=== PATIENT | female | born 1955 | race Caucasian/White ===

== ENCOUNTER 2020-11-19 15:30 | Outpatient (REF) | payer OTHER, SELFPAY ==
[2020-11-19 17:21] LABS: Syphilis Screen Reactive (Nonreactive)
[2020-11-19 17:31] LABS: Folate 15.4 ng/mL (> or = 4.0); Vitamin B12 511 pg/mL (200-900)
[2020-11-20 10:22] LABS: Lyme Abs Screen <0.90 index
[2020-11-26 11:37] LABS: RPR Quantitative Reactive 1:1 (Nonreactive); T.Pallidum Particle Agg Test Reactive (Nonreactive)
== END 2020-11-19 15:31 | disposition home or self-care (01) ==
LOC: HO.LAB 15:30
PROVIDERS: Visit Provider Psychiatry & Neurology Neurology
DX: Z01.84 Encounter for antibody response examination (principal); G93.40 Encephalopathy, unspecified
CPT/HCPCS: 36415; 82607; 82746; 86592; 86617; 86618; 86780

== ENCOUNTER 2020-11-23 15:33 | Outpatient (REF) | payer OTHER, SELFPAY ==
--- NOTE | ~2020-11-23 | MR_ITS ---
EXAMINATION: MR BRAIN WITHOUT CONTRAST CLINICAL INFORMATION: 65-year-old with memory loss. Encephalopathy. COMPARISON: None TECHNIQUE: Multiplanar multisequence MR imaging of the brain was done without intravenous contrast material. FINDINGS: Brain Volume: Normal for age with no definite disproportionate regional brain parenchymal volume loss. Structural: No malformations. Brain and Meninges: Numerous patchy and punctate foci of FLAIR/T2 signal hyperintensity are noted within the subcortical and deeper periventricular white matter of both cerebral hemispheres without restricted diffusion, which are nonspecific findings. Bilateral confluent periventricular T2 hyperintensity is seen consistent with leukoareosis. The findings are most consistent with chronic ischemic microangiopathy. DWI imaging demonstrates no restricted diffusion. Specifically, there is no evidence for recent or acute infarct. Gradient-echo imaging demonstrates no evidence for hemorrhage, hemosiderin staining or abnormal mineral deposition. No extra-axial fluid collections, space-occupying process or mass effect are identified. Posterior fossa structures appear intact. There is a small T2 hyperintensity in the right beni also likely reflecting minimal chronic microvascular ischemic change. There is subtle FLAIR signal hyperintensity bordering the anterior third ventricle bilaterally which is nonspecific in the absence of any other findings to suggest Wernicke's encephalopathy. Ventricles and Subarachnoid Spaces: The ventricular system and subarachnoid spaces are consistent with the patient's age, without hydrocephalus. Orbital Structures: The visualized orbital structures appear grossly unremarkable within the limitations of the study. Vascular: Normal signal voids are seen in the visualized major intracranial vessels. Sinuses and Osseous Structures: The osseous marrow signal appears grossly within normal limits. The craniocervical junction appears intact. There is a mild degree of mucosal thickening and/or retention cyst formation along the floors of both maxillary sinuses with mild mucosal thickening in the ethmoid complex. MR/MR head/brain wo con IMPRESSION: 1. Bilateral white matter abnormalities, as described above, which are nonspecific but likely reflect chronic ischemic microangiopathy with no evidence for recent or acute infarct. 2. No evidence for extra-axial fluid collection, hemorrhage, hemosiderin staining, space-occupying process, mass effect, or hydrocephalus. 3. Subtle FLAIR signal hyperintensity bordering the anterior third ventricle bilaterally, which is nonspecific in the absence of any other findings to suggest Wernicke's encephalopathy.
== END 2020-11-23 15:34 | disposition home or self-care (01) ==
LOC: HO.MRI 15:33
PROVIDERS: Visit Provider Psychiatry & Neurology Neurology
DX: G93.40 Encephalopathy, unspecified (principal)
CPT/HCPCS: 70551